=== PATIENT | female | born 1970 | race Caucasian/White ===

== ENCOUNTER 2019-01-19 19:09 | Outpatient (REF) | payer SELFPAY | END 2019-01-19 19:29 | LOC: LBN 19:09 | PROVIDERS: PCP Nurse Practitioner Family; Visit Provider Nurse Practitioner Family | DX: N89.8 Other specified noninflammatory disorders of vagina (principal) | CPT/HCPCS: 87480; 87510; 87660 ==

== ENCOUNTER 2020-10-22 07:49 | Emergency (ER) | payer BC, SELFPAY ==
[2020-10-22] VITALS (45 sets, daily range): BP systolic 127–157; BP diastolic 83–104; PULSE 66–91; RESP 10–21; TEMP 37; O2SAT 95–100
--- NOTE | 2020-10-22 07:45 | RT.EKG_ITS ---
APPROVED REPORT Exam: Resting ECG Patient Location: E HR:80 bpm ECG Measurements Heart Rate 80 AXIS TN 141 P 39 QRSd 92 QRS 13 QT 379 T 62 QTc 438 Conclusion Sinus rhythm...normal P axis, V-rate 60- 99 I have reviewed and interpreted ECG and agree with software generated interpretation.
--- NOTE | 2020-10-22 07:52 | ED.GENADUL_ITS ---
Discharge Plan Disposition Patient Disposition: HOME Condition: Stable Discharge Details Clinical Impression: Atypical chest pain, Hypertension Primary Care Provider: Kaylen Ennis ED Provider: Nell Sánchez Home Meds and New Rx's Prescriptions: No Action Xulane 150-35 mcg/24 hr patch weekly 1 patch Transdermal weekly Qty: 9 RF: 4 Discharge Instructions Instructions: Chest Pain (ED), Hypertension (ED) Additional Instructions: Your potassium and magnesium was slightly low today. You can supplement this in your diet. The remainder of your lab work and CAT scan of your chest was within normal limits. Your blood pressure was elevated today in the emergency department. Be sure to watch your sodium intake as high levels of sodium in your diet can contribute to high blood pressure. Follow-up with your primary care doctor for reevaluation of your blood pressure to determine if you need to start blood pressure medication. An order has been placed for an outpatient stress test. You will be notified by the radiology department regarding scheduling of the stress test. You should also follow-up with your primary care doctor for results of the stress test. Return immediately to the emergency department if you develop any worsening or new concerning symptoms. Discharge Data Discharge Date/Time-TO BE ENTERED AT DEPARTURE: 10/22/20 12:11 Discharge Physician: Nell Sánchez Medical Decision Making 50-year-old female on control presents for left-sided chest pain of several hours duration last night that started while walking on a treadmill. She admits to minimal left-sided chest discomfort 1/10 at this time. EKG notes a rate of 80, sinus, no STEMI, nondiagnostic. Patient appears comfortable and nontoxic. She has no left-sided chest tenderness. She admits to some tingling in her left arm with lifting her left arm above her head. As her pain started while walking on a treadmill, was worse with deep breath, could be musculoskeletal, but also consider PE considering her contraceptive use. Will check screening labs, CT chest, give a dose of Toradol and IV fluids and reassess. Labs and imaging reviewed. Potassium 3.4 and magnesium 1.7, will replete. CT chest negative. Patient reassessed and she admitted to some left arm tingling while lifting her arm above her head in radiology. She denies any pain at this time. Repeat troponin negative. Repeat EKG unchanged. Her blood pressure was as high as 155/104 and is low as 127/89. Several blood pressures before discharge 130s/80s. Patient reassessed and she denies any symptoms. Patient feels good to go home. An order for outpatient stress test was placed. Advised to follow up with the primary care doctor for re-evaluation and for recheck of her blood pressure. Usual and customary return precautions given prior to discharge. Medical Records Medical records reviewed: Yes I reviewed the patient's medical records. Imaging Data Radiologic Study: Radiologist's impression: CT CHEST PE CTA CLINICAL HISTORY: L anterior chest pain, r/o PE. TECHNIQUE: Imaging Protocol: Axial CT angiography was performed with multi- slice acquisition and multi-planar and/or 3D reconstructions. CONTRAST MATERIAL: Intravenous: Omnipaque 350 Contrast volume:structured data in ml COMPARISON: No exams were available for comparison FINDINGS: Pulmonary Arteries: No evidence of filling defect to suggest pulmonary emboli. Tracheobronchial tree: Patent where visualized. Mediastinum and Emily: No dominant adenopathy or fluid collection. Pulmonary parenchyma: No consolidation or dominant measurable mass. No architectural distortion. Pleura: No effusion or pneumothorax. Heart: The heart is not dilated. No coronary artery calcifications are seen. Aorta: Thoracic aorta non-dilated. Upper abdomen: Unremarkable. Bones: Mild degenerative disc changes mid thoracic spine. Sternum and ribs unremarkable. IMPRESSION: No evidence of pulmonary embolism or other acute abnormality.. Lab Data Lab results reviewed: Yes I reviewed the patient's lab results. Labs: Laboratory Tests Range/Units 10/22/20 10/22/20 10/22/20 08:03 08:03 08:03 WBC (4.4-10.8) 10^3/uL 4.98 RBC (3.93-5.22) 10^6/uL 4.46 Hgb (11.2-15.7) g/dL 13.2 Hct (36.0-46.0) % 39.5 MCV (80-95) fL 88.6 MCH (27.0-33.0) pg 29.6 MCHC (32.0-36.0) % 33.4 RDW (11.7-14.6) % 12.8 Plt Count (130-400) 10^3/uL 320 MPV (8.0-11.0) fL 9.4 Immature Gran % 0.2 Neutrophils % 52.0 Lymphocytes % 37.6 Monocytes % 8.4 Eosinophils % 1.4 Basophils % 0.4 Nucleated RBC % % 0 Absolute Neutrophils (1.2-6.7) 10^3/uL 2.59 Absolute Lymphocytes (1.2-3.4) 10^3/uL 1.87 Absolute Monocytes (0.1-0.8) 10^3/uL 0.42 Absolute Eosinophils (0.0-0.7) 10^3/uL 0.07 Absolute Basophils (0.0-0.2) 10^3/uL 0.02 PT (9.3-11.0) sec 10.0 INR (0.9-1.1) 1.0 APTT (21.0-27.5) sec 23.2 Sodium (136-145) mmol/L 141 Potassium (3.5-5.1) mmol/L 3.4 L Chloride (98-107) mmol/L 104 Carbon Dioxide (21.0-32.0) mmol/L 29.1 Anion Gap (3-11) mmol/L 7.9 BUN (7-18) mg/dL 28 H Creatinine (0.55-1.02) mg/dL 0.8 Estimated GFR/1.73 m2 (mL/min/1.73m2) >= 60.00 Glucose (74-106) mg/dL 101 Calcium (8.5-10.1) mg/dL 8.5 Magnesium (1.8-2.4) mg/dL 1.7 L Total Bilirubin (0.2-1.0) mg/dL 0.3 AST (15-37) U/L 19 ALT (14-59) U/L 29 Alkaline Phosphatase (46-116) U/L 54 Troponin I (<0.06) ng/mL < 0.05 Total Protein (6.4-8.2) g/dL 7.3 Albumin (3.4-5.0) g/dL 3.4 Range/Units 10/22/20 11:00 WBC (4.4-10.8) 10^3/uL RBC (3.93-5.22) 10^6/uL Hgb (11.2-15.7) g/dL Hct (36.0-46.0) % MCV (80-95) fL MCH (27.0-33.0) pg MCHC (32.0-36.0) % RDW (11.7-14.6) % Plt Count (130-400) 10^3/uL MPV (8.0-11.0) fL Immature Gran % Neutrophils % Lymphocytes % Monocytes % Eosinophils % Basophils % Nucleated RBC % % Absolute Neutrophils (1.2-6.7) 10^3/uL Absolute Lymphocytes (1.2-3.4) 10^3/uL Absolute Monocytes (0.1-0.8) 10^3/uL Absolute Eosinophils (0.0-0.7) 10^3/uL Absolute Basophils (0.0-0.2) 10^3/uL PT (9.3-11.0) sec INR (0.9-1.1) APTT (21.0-27.5) sec Sodium (136-145) mmol/L Potassium (3.5-5.1) mmol/L Chloride (98-107) mmol/L Carbon Dioxide (21.0-32.0) mmol/L Anion Gap (3-11) mmol/L BUN (7-18) mg/dL Creatinine (0.55-1.02) mg/dL Estimated GFR/1.73 m2 (mL/min/1.73m2) Glucose (74-106) mg/dL Calcium (8.5-10.1) mg/dL Magnesium (1.8-2.4) mg/dL Total Bilirubin (0.2-1.0) mg/dL AST (15-37) U/L ALT (14-59) U/L Alkaline Phosphatase (46-116) U/L Troponin I (<0.06) ng/mL < 0.05 Total Protein (6.4-8.2) g/dL Albumin (3.4-5.0) g/dL ECG Data Attestation: I personally reviewed and interpreted this ECG (s) as follows: Interpretation: #1 -- Rate of 80, sinus, no acute ST elevation or depression. WI 141. QRS 92. QTc 438. #2 -- Rate of 77, sinus, no acute ST elevation or depression. WI 140. QRS 90. QTc 462. HPI General Mode of arrival: ambulatory . Date/Time Provider Initiated Documentation: 10/22/20 07:52 . Limitations to Documentation: no limitations . Information obtained by: patient . HPI Narrative: Patient is a 50-year-old female with a history of contraceptive use presents to the ED with complaint of left-sided chest pain since last night. Patient states she was walking on a treadmill last evening when she developed left-sided chest pressure and discomfort. She denies any radiation of pain but did admit to some tingling in her left arm when she had the pain. Patient states she had the pain approximately until 3 AM while laying in bed and states she was unable to sleep. She states the pain resolved around 3 AM but she was no longer able to sleep the rest of the night. Patient states she awoke feeling tired but denies any pain this morning. She denies any known injury, fever, cough, shortness of breath, nausea, vomiting, dizziness, diaphoresis, recent injury, recent surgery, recent travel or leg pain or swelling. Related Data Home Medications Medication Instructions Recorded Confirmed norelgestromin 150 mcg-e.estradiol 1 patch TRANSDERMAL weekly #9 each 08/14/20 10/22/20 35 mcg/24 hr weekly transderm patch Previous Rx's Medication Instructions Recorded norelgestromin 150 mcg-e.estradiol 1 patch TRANSDERMAL weekly #9 each 08/14/20 35 mcg/24 hr weekly transderm patch Allergies Allergy/AdvReac Type Severity Reaction Status Date / Time No Known Allergies Allergy Unverified 10/22/20 07:59 Review of Systems All systems reviewed & are unremarkable except as noted in HPI and below Constitutional Constitutional: Reports as per HPI, Denies chills and Denies fever(s) Eyes Eyes: Denies blurry vision ENT Ears, Nose, Mouth, and Throat: Denies dizziness, Denies sore throat and Denies throat swelling Cardiovascular Cardiovascular: Reports chest pain and Denies dyspnea Respiratory Respiratory: Denies cough and Denies dyspnea Gastrointestinal Gastrointestinal: Denies abdominal pain, Denies diarrhea and Denies vomiting Genitourinary Genitourinary: Denies hematuria and Denies dysuria Musculoskeletal Musculoskeletal: Denies back pain and Denies numbness Integumentary/Breasts Skin/Breast: Denies lesions and Denies rash Neurologic Neurologic: Denies dizziness, Denies localized weakness and Denies numbness Allergic/Immunologic Allergic/Immunologic: Denies throat swelling [facility] Medical History (Updated 10/22/20 @ 09:51 by Nell Sánchez DO) Contraceptive surveillance Family History Mother Depression Skin cancer Father Essential hypertension Hyperlipidemia Skin cancer Heart disease Sister Alcohol abuse Sister Thyroid cancer Son No problems noted. Daughter No problems noted. Maternal Grandfather No problems noted. Maternal Grandmother Asthma Heart disease Paternal Grandfather Alcohol abuse Heart disease Paternal Grandmother No problems noted. Social History Smoking/Tobacco Use Status: Never Smoking risk assessment performed?: Yes Alcohol Intake: never Drug use: Never Do you feel safe at home: Yes Do you feel safe in your relationship?: Yes History History 2 Para 2 Hx # Term Pregnancies Multiple births Hx # Pregnancies Ectopic pregnancies AB induced Hx Number of Living Children 2 AB spontaneous Exam Const General: cooperative, healthy appearing and no acute distress HENMT Head: normal to inspection Face and sinus: normal facial exam Eyes General: appearance normal, both eyes and all related structures EOM: EOM intact bilaterally Neck Neck: normal visual inspection and No submandibular swelling Lymphatic: no lymphadenopathy noted Chest Chest: normal inspection of the chest and no tenderness Resp Effort & Inspection: normal respiratory effort and able to speak in complete sentences Auscultation: clear to auscultation bilaterally Cardio Rate: regular rate Rhythm: regular rhythm GI Inspection: normal to inspection Palpation: soft, not firm, not rigid and nontender Auscultation: normal bowel sounds Back/Spine/Pelvis Thoracic/Lumbar Spine: thoracic and lumbar spine normal to inspection Skin General skin exam: no rashes or lesions noted Neuro General: patient alert, patient awake and patient oriented x3 Cognition: normal cognition Speech: speech normal Motor: muscle tone normal throughout Sensory Exam: no sensory deficits noted Extrem General: normal to inspection, full ROM, capillary refill normal, no calf tenderness bilaterally and no edema Psych Appearance: grossly normal Mental Status: mental status grossly normal Speech and Movement: speech and movement normal Affect: normal affect
--- NOTE | 2020-10-22 08:15 | DI.CT_ITS ---
EXAM: CT CHEST PE CTA CLINICAL HISTORY: L anterior chest pain, r/o PE. TECHNIQUE: Imaging Protocol: Axial CT angiography was performed with multi-slice acquisition and mu lti-planar and/or 3D reconstructions. CONTRAST MATERIAL: Intravenous: Omnipaque 350 Contrast volume:structured data in ml COMPARISON: No exams were available for comparison FINDINGS: Pulmonary Arteries: No evidence of filling defect to suggest pulmonary emboli. Tracheobronchial tree: Patent where visualized. Mediastinum and Emily: No dominant adenopathy or fluid collection. Pulmonary parenchyma: No consolidation or dominant measurable mass. No architectural distortion. Pleura: No effusion or pneumothorax. Heart: The heart is not dilated. No coronary artery calcifications are seen. Aorta: Thoracic aorta non-dilated. Upper abdomen: Unremarkable. Bones: Mild degenerative disc changes mid thoracic spine. Sternum and ribs unremarkable. IMPRESSION: No evidence of pulmonary embolism or other acute abnormality.. RADIATION DOSE DELIVERED: 343.66mGy.cm Total DLP DATA REPOSITORY: All CT scans at this facility are submitted to the National Radiology Data Registry (NRDR) Dose Index Registry (DIR) with the [employer] ([employer]). RADIATION OPTIMIZATION: All CT scans at this facility use at least one of these dose optimization te chniques: automated exposure control; mA and/or kV adjustment per patient size (includes targeted exa ms where dose is matched to clinical indication); or iterative reconstruction.
[2020-10-22 08:19] LABS: Abs Immature Grans 0.01 10^3/uL (0.0-0.06); Absolute Basophil Count 0.02 10^3/uL (0.0-0.2); Absolute Eosinophil Count 0.07 10^3/uL (0.0-0.7); Absolute Lymphocyte Count 1.87 10^3/uL (1.2-3.4); Absolute Monocyte Count 0.42 10^3/uL (0.1-0.8); Absolute Neutrophil Count 2.59 10^3/uL (1.2-6.7); Basophils % 0.4; Eosinophils % 1.4; HCT 39.5 % (36.0-46.0); HGB 13.2 g/dL (11.2-15.7); Immature Grans % 0.2; Lymphocytes % 37.6; MCH 29.6 pg (27.0-33.0); MCHC 33.4 % (32.0-36.0); MCV 88.6 fL (80-95); MPV 9.4 fL (8.0-11.0); Monocytes % 8.4; Nucleated RBC 0 %; Platelet Count 320 10^3/uL (130-400); RBC 4.46 10^6/uL (3.93-5.22); RDW 12.8 % (11.7-14.6); RDW-SD 41.8 fL; WBC 4.98 10^3/uL (4.4-10.8)
[2020-10-22 08:32] LABS: PTT Activated 23.2 sec (21.0-27.5)
[2020-10-22 08:35] LABS: ALT 29 U/L (14-59); AST 19 U/L (15-37); Albumin 3.4 g/dL (3.4-5.0); Alkaline Phosphatase 54 U/L (46-116); Anion Gap 7.9 mmol/L (3-11); BUN 28 mg/dL (7-18); Bilirubin, Total 0.3 mg/dL (0.2-1.0); CO2 29.1 mmol/L (21.0-32.0); CREATININE 0.8 mg/dL (0.55-1.02); Calcium 8.5 mg/dL (8.5-10.1); Chloride 104 mmol/L (98-107); Glucose 101 mg/dL (74-106); Magnesium 1.7 mg/dL (1.8-2.4); Potassium 3.4 mmol/L (3.5-5.1); Sodium 141 mmol/L (136-145); Total Protein 7.3 g/dL (6.4-8.2)
[2020-10-22 08:36] LABS: Troponin I < 0.05 ng/mL (<0.06)
[2020-10-22] MEDS: Omnipaque 350 MG/ML 100 ML BTL IJ (09:03)
[2020-10-22] MEDS: Normal Saline - Diluent 50 ML VIAL IV (09:04)
[2020-10-22] MEDS: Potassium Chloride 20 MEQ TABCR 40 MEQ PO (09:08)
[2020-10-22] MEDS: Magnesium Oxide 400 MG TAB PO (09:08)
--- NOTE | 2020-10-22 09:15 | RT.EKG_ITS ---
APPROVED REPORT Exam: Resting ECG Patient Location: E HR:77 bpm ECG Measurements Heart Rate 77 AXIS MT 140 P 59 QRSd 90 QRS 13 QT 408 T 58 QTc 462 Conclusion Sinus rhythm...normal P axis, V-rate 60- 99 I have reviewed and interpreted ECG and agree with software generated interpretation.
[2020-10-22] MEDS: Normal Saline 1,000 ML 1000 ML IV (09:27)
[2020-10-22 11:22] LABS: Troponin I < 0.05 ng/mL (<0.06)
--- NOTE | 2020-10-22 11:59 | NUR.NOTE ---
Nursing Note: Exercise treadmill stress test referral faxed to [facility]. Instructions given to pt. Freida Cabrales
[2020-10-22 12:05] LABS: Source Nasal/Nares
[2020-10-22 16:17] LABS: COVID-19 PCR Negative (Negative)
--- NOTE | 2020-10-22 16:32 | NUR.NOTE ---
Covid results called to pt.
== END 2020-10-22 12:11 | disposition home or self-care (01) ==
PROVIDERS: Emergency Provider Physician Assistant; PCP Nurse Practitioner Family
DX: R07.89 Other chest pain (principal); E87.6 Hypokalemia; E83.42 Hypomagnesemia; R03.0 Elevated blood-pressure reading, without diagnosis of hypertension; R20.2 Paresthesia of skin; Z03.818 Encounter for observation for suspected exposure to other biological agents ruled out
CPT/HCPCS: 36415; 71275; 80053; 81025; 87635; 93005; 96361; 96374; 99285; 83735; 84484; 85025; 85610; 85730; 93010; J3490

== ENCOUNTER 2020-10-23 13:21 | Emergency (ER) | payer BC, SELFPAY ==
[2020-10-23] VITALS (45 sets, daily range): BP systolic 113–155; BP diastolic 80–102; PULSE 72–93; RESP 10–29; TEMP 36.5; O2SAT 95–99
--- NOTE | 2020-10-23 13:15 | RT.EKG_ITS ---
APPROVED REPORT Exam: Resting ECG Patient Location: E HR:75 bpm ECG Measurements Heart Rate 75 AXIS UT 147 P 68 QRSd 93 QRS -19 QT 400 T 59 QTc 447 Conclusion Sinus rhythm...normal P axis, V-rate 60- 99 I have reviewed and interpreted ECG and agree with software generated interpretation.
--- NOTE | 2020-10-23 13:30 | DI.RAD_ITS ---
EXAM: XR CHEST 2V PA LATERAL CLINICAL HISTORY: chest pain. TECHNIQUE: 2D digital imaging was performed. COMPARISON: No exams were available for comparison FINDINGS: Heart size is normal. The mediastinum is not widened. Lungs are clear. No infiltrates nor pleural effusions. IMPRESSION: No acute pulmonary findings. DATA REPOSITORY: RADIATION DOSE DELIVERED:
[2020-10-23 14:04] LABS: Abs Immature Grans 0.01 10^3/uL (0.0-0.06); Absolute Basophil Count 0.02 10^3/uL (0.0-0.2); Absolute Eosinophil Count 0.09 10^3/uL (0.0-0.7); Absolute Monocyte Count 0.29 10^3/uL (0.1-0.8); Absolute Neutrophil Count 3.13 10^3/uL (1.2-6.7); Basophils % 0.3; Eosinophils % 1.5; HCT 39.9 % (36.0-46.0); HGB 13.2 g/dL (11.2-15.7); Immature Grans % 0.2; Lymphocytes % 41.4; MCH 29.3 pg (27.0-33.0); MCHC 33.1 % (32.0-36.0); MCV 88.7 fL (80-95); MPV 9.5 fL (8.0-11.0); Monocytes % 4.8; Neutrophils % 51.8; Nucleated RBC 0 %; Platelet Count 321 10^3/uL (130-400); RDW 12.9 % (11.7-14.6); RDW-SD 42.2 fL; WBC 6.04 10^3/uL (4.4-10.8)
--- NOTE | 2020-10-23 14:14 | W.ED.GENAD ---
Discharge Plan Disposition Patient Disposition: HOME Condition: Stable Discharge Details Clinical Impression: Atypical chest pain, Hypomagnesemia, Hypokalemia Primary Care Provider: Kaylen Ennis ED Provider: Angie Simpson Home Meds and New Rx's Prescriptions: Continued Xulane 150-35 mcg/24 hr patch weekly 1 patch Transdermal weekly Qty: 9 RF: 4 Discharge Instructions Instructions: Chest Pain (ED), Hypokalemia (ED), Hypomagnesemia (ED) Additional Instructions: Your labs are reassuring here today. Please try to avoid strenuous activity. Please keep your upcoming appointment for stress testing. Please follow-up with primary care within the next week for reevaluation. If you develop any new or worsening symptoms please seek care urgently once again. Referrals: Kaylen Ennis NP [Primary Care Provider] - Discharge Data Discharge Date/Time-TO BE ENTERED AT DEPARTURE: 10/23/20 18:50 Medical Decision Making <RADHA Ewing - Last Filed: 10/23/20 15:04> 50-year-old female reports left-sided chest pressure and shortness of breath while carrying bags around 1245 this afternoon. Since that time she also had intermittent left hand paresthesias. Currently she denies any chest pain, pressure, shortness of breath, paresthesias. She had a thorough cardiac work-up yesterday including a CT of her chest. She is set up for stress test on 10-28-20. We discussed our options, she is agreeable to initiating another cardiac work-up now including a repeat EKG troponin at the 3-hour lashae. She does not want any aspirin. Clinically she appears well, nontoxic. Initial laboratory values are unremarkable for obvious emergent process. Magnesium of 1.7 and potassium of 3.2. Will give 1 g IV magnesium and 40 p.o. potassium. Initial troponin and EKG unremarkable. Upon reevaluation at 1450, patient is reading a book, asymptomatic, blood pressure trending down nicely. We discussed replenishing her magnesium and potassium. She is agreeable to awaiting a repeat troponin and EKG at the 3-hour lashae. Medical Records Medical records reviewed: Yes I reviewed the patient's medical records. Imaging Data Radiologic Study: Attestation: I personally reviewed and interpreted this imaging study as follows: Imaging: X-Ray Radiologist's impression: Chest x-ray read by radiology as no acute pulmonary findings Lab Data Lab results reviewed: Yes I reviewed the patient's lab results. Labs: Laboratory Tests Range/Units 10/23/20 10/23/20 13:50 13:50 WBC (4.4-10.8) 10^3/uL 6.04 RBC (3.93-5.22) 10^6/uL 4.50 Hgb (11.2-15.7) g/dL 13.2 Hct (36.0-46.0) % 39.9 MCV (80-95) fL 88.7 MCH (27.0-33.0) pg 29.3 MCHC (32.0-36.0) % 33.1 RDW (11.7-14.6) % 12.9 Plt Count (130-400) 10^3/uL 321 MPV (8.0-11.0) fL 9.5 Immature Gran % 0.2 Neutrophils % 51.8 Lymphocytes % 41.4 Monocytes % 4.8 Eosinophils % 1.5 Basophils % 0.3 Nucleated RBC % % 0 Absolute Neutrophils (1.2-6.7) 10^3/uL 3.13 Absolute Lymphocytes (1.2-3.4) 10^3/uL 2.50 Absolute Monocytes (0.1-0.8) 10^3/uL 0.29 Absolute Eosinophils (0.0-0.7) 10^3/uL 0.09 Absolute Basophils (0.0-0.2) 10^3/uL 0.02 Sodium (136-145) mmol/L 138 Potassium (3.5-5.1) mmol/L 3.2 L Chloride (98-107) mmol/L 103 Carbon Dioxide (21.0-32.0) mmol/L 25.8 Anion Gap (3-11) mmol/L 9.2 BUN (7-18) mg/dL 24 H Creatinine (0.55-1.02) mg/dL 0.7 Estimated GFR/1.73 m2 (mL/min/1.73m2) >= 60.00 Glucose (74-106) mg/dL 121 H Calcium (8.5-10.1) mg/dL 8.8 Magnesium (1.8-2.4) mg/dL 1.7 L Total Bilirubin (0.2-1.0) mg/dL 0.4 AST (15-37) U/L 21 ALT (14-59) U/L 25 Alkaline Phosphatase (46-116) U/L 54 Troponin I (<0.06) ng/mL < 0.05 Total Protein (6.4-8.2) g/dL 7.6 Albumin (3.4-5.0) g/dL 3.5 ECG Data Attestation: I personally reviewed and interpreted this ECG (s) as follows: Interpretation: Please see official report by Dr. Sánchez. Sinus rhythm, ventricular rate of 75. No STEMI. <RADHA Rodriguez - Last Filed: 10/24/20 07:45> Care transitioned to myself from Stevo Barbosa PA-C. Please see his initial note regarding history, presentation and exam. In brief, patient is a pleasant 50 year old female who presented today for a brief episode of recurrent CP that occurred while walking to her car. Patient was seen here yesterday for CP she experienced whlie walking on the treadmill. At that time she had extensive workup without abnormality noted. She is scheduled for outpatient stress testing on 10/28/20. Thus far, darcy had been diagnosed with hypomagnesemia, hypokalemia. These have been replenished by Mr. Barbosa. At the time i assumed care, awaiting repeat troponin. Repeat troponin remains <0.05. Discussed these findings with the patient. She has been asymptomatic since being here. She had initially refused ASA but agrees to daily ASA. She has familial cardiac history but this is slightly unclear. Her heart score is a 3. She and I discussed disposition, patient prefers discharge home. Return precautions discussed. She will keep her upcoming appointment. All of her questions and concerns were addressed, she is in agreement with this plan. HPI <RADHA Ewing - Last Filed: 10/23/20 15:04> General Mode of arrival: ambulatory. Date/Time Provider Initiated Documentation: 10/23/20 13:23. Limitations to Documentation: no limitations. Information obtained by: patient. HPI Narrative: This is a 50-year-old female, past medical history of hypertension, currently treated with estradiol transdermal patch, presents to the ER for what she describes as chest pressure. Patient was actually evaluated in our ER yesterday, please refer to that note as well. Patient had a thorough cardiac work-up including 2 troponins and a negative chest CT. Set up for a cardiac stress test on 10-28-20. Patient reports today approximately 1245 this afternoon, she was carrying her bags and felt a small amount of what she describes as left-sided chest pressure 1 out of 10, mild shortness of breath, and since that time has had intermittent tingling in her left hand, none right now. Patient denies any chest pain or shortness of breath effectively. She denies recent illness or trauma. She denies pain or swelling in her legs. She states that the instructions clearly stated that if she experience additional symptoms to return to the ER so that is what she is doing. Patient denies being a smoker. She denies any cardiac history. Related Data Home Medications Medication Instructions Recorded Confirmed norelgestromin 150 mcg-e.estradiol 1 patch TRANSDERMAL weekly #9 each 08/14/20 10/23/20 35 mcg/24 hr weekly transderm patch Previous Rx's Medication Instructions Recorded norelgestromin 150 mcg-e.estradiol 1 patch TRANSDERMAL weekly #9 each 08/14/20 35 mcg/24 hr weekly transderm patch Allergies Allergy/AdvReac Type Severity Reaction Status Date / Time No Known Allergies Allergy Unverified 10/23/20 13:31 General Stated Complaint: Chest Pain BRANDEN: 2 Review of Systems <RADHA Ewing - Last Filed: 10/23/20 15:04> Constitutional Constitutional: Denies fever(s), Denies headache(s) and Denies weakness ENT Ears, Nose, Mouth, and Throat: Denies headache(s) and Denies neck pain Cardiovascular Cardiovascular: Reports chest pain and Reports dyspnea Respiratory Respiratory: Denies cough and Reports dyspnea Gastrointestinal Gastrointestinal: Denies abdominal pain, Denies nausea and Denies vomiting Musculoskeletal Musculoskeletal: Denies back pain, Denies neck pain and Reports tingling Integumentary/Breasts Skin/Breast: Denies rash Neurologic Neurologic: Denies headache(s), Reports tingling and Denies weakness Endocrine Endocrine: Reports other (Feeling tired, did not sleep well last night) [facility] <RADAH Ewing - Last Filed: 10/23/20 15:04> Medical History (Updated 10/23/20 @ 18:21 by RADHA Rodriguez) Contraceptive surveillance Family History Mother Depression Skin cancer Father Essential hypertension Hyperlipidemia Skin cancer Heart disease Sister Alcohol abuse Sister Thyroid cancer Son No problems noted. Daughter No problems noted. Maternal Grandfather No problems noted. Maternal Grandmother Asthma Heart disease Paternal Grandfather Alcohol abuse Heart disease Paternal Grandmother No problems noted. Social History Smoking/Tobacco Use Status: Never Smoking risk assessment performed?: Yes Alcohol Intake: never Drug use: Never Do you feel safe at home: Yes Do you feel safe in your relationship?: Yes History History 2 Para 2 Hx # Term Pregnancies Multiple births Hx # Pregnancies Ectopic pregnancies AB induced Hx Number of Living Children 2 AB spontaneous Exam <RADHA Ewing - Last Filed: 10/23/20 15:04> Const General: cooperative, healthy appearing, comfortable and no acute distress Orientation: alert, awake and oriented x3 HENMT Head: normal to inspection, normocephalic and atraumatic Mouth: moist mucous membranes Eyes General: appearance normal, both eyes and all related structures Conjunctivae: conjunctivae normal Sclera: sclerae normal Neck Neck: normal visual inspection, full ROM, trachea midline and supple Resp Effort & Inspection: normal respiratory effort and able to speak in complete sentences Auscultation: clear to auscultation bilaterally Cardio Rate: regular rate Rhythm: regular rhythm GI Palpation: soft and nontender Back/Spine/Pelvis Back: No back tenderness Skin General skin exam: no rashes or lesions noted Neuro General: patient alert, patient awake, moves all extremities and no focal motor deficits Cognition: normal cognition Speech: speech normal Gait: normal gait Motor: muscle tone normal throughout Sensory Exam: no sensory deficits noted Extrem General: normal to inspection, full ROM, capillary refill normal, no pedal edema and no calf tenderness Psych Appearance: grossly normal Mental Status: mental status grossly normal Course <RADHA Ewing - Last Filed: 10/23/20 15:04> Vital Signs Vital signs: Vital Signs Temperature 36.5 C 10/23/20 13:29 Pulse 78 10/23/20 13:29 Respiratory Rate 15 10/23/20 13:29 Blood Pressure 155/93 H 10/23/20 13:29 Pulse Oximetry 98 10/23/20 13:29 Temperature 36.5 C 10/23/20 13:29 Temperature Source Skin 10/23/20 13:29 Pulse 80 10/23/20 13:47 Pulse 77 10/23/20 14:00 Respiratory Rate 13 10/23/20 14:05 Respiratory Effort 10/23/20 14:05 Respiratory Depth Normal 10/23/20 14:05 Respiratory Pattern Normal 10/23/20 14:05 Blood Pressure 134/89 10/23/20 13:47 Blood Pressure Mean 100 10/23/20 13:47 Blood Pressure Position Sitting 10/23/20 13:29 Pulse Oximetry 97 10/23/20 14:00 Oxygen Delivery Method Room Air 10/23/20 13:29 Oxygen Flow Rate 0 10/23/20 13:29 Pain Level 1 10/23/20 13:29 Lab/Test Results Lab/Test Results: Laboratory Tests Range/Units 10/23/20 13:50 WBC (4.4-10.8) 10^3/uL 6.04 RBC (3.93-5.22) 10^6/uL 4.50 Hgb (11.2-15.7) g/dL 13.2 Hct (36.0-46.0) % 39.9 MCV (80-95) fL 88.7 MCH (27.0-33.0) pg 29.3 MCHC (32.0-36.0) % 33.1 RDW (11.7-14.6) % 12.9 Plt Count (130-400) 10^3/uL 321 MPV (8.0-11.0) fL 9.5 Immature Gran % 0.2 Neutrophils % 51.8 Lymphocytes % 41.4 Monocytes % 4.8 Eosinophils % 1.5 Basophils % 0.3 Nucleated RBC % % 0 Absolute Neutrophils (1.2-6.7) 10^3/uL 3.13 Absolute Lymphocytes (1.2-3.4) 10^3/uL 2.50 Absolute Monocytes (0.1-0.8) 10^3/uL 0.29 Absolute Eosinophils (0.0-0.7) 10^3/uL 0.09 Absolute Basophils (0.0-0.2) 10^3/uL 0.02 Sign Out <RADHA Ewing - Last Filed: 10/23/20 15:04> Sign Out Data: Sign Out Comment: Diagnosed with atypical chest pain yesterday, rapid cardiac rule out and CT of chest yesterday. Set up for stress test on 10-28-20. She developed mild which she describes as chest pressure, shortness of breath, left hand paresthesias. Pressure and shortness of breath resolved by the time she came to the ER. Patient is currently asymptomatic. Initial troponin and EKG unremarkable. Patient declined aspirin. Awaiting repeat troponin and EKG. Last updated by Stevo Barbosa PA at 10/23/20 15:04
[2020-10-23 14:20] LABS: ALT 25 U/L (14-59); AST 21 U/L (15-37); Albumin 3.5 g/dL (3.4-5.0); Alkaline Phosphatase 54 U/L (46-116); Anion Gap 9.2 mmol/L (3-11); BUN 24 mg/dL (7-18); Bilirubin, Total 0.4 mg/dL (0.2-1.0); CO2 25.8 mmol/L (21.0-32.0); CREATININE 0.7 mg/dL (0.55-1.02); Calcium 8.8 mg/dL (8.5-10.1); Chloride 103 mmol/L (98-107); Glucose 121 mg/dL (74-106); Magnesium 1.7 mg/dL (1.8-2.4); Potassium 3.2 mmol/L (3.5-5.1); Sodium 138 mmol/L (136-145); Total Protein 7.6 g/dL (6.4-8.2)
[2020-10-23 14:21] LABS: Troponin I < 0.05 ng/mL (<0.06)
[2020-10-23] MEDS: Potassium Chloride 20 MEQ TABCR 40 MEQ PO (15:14)
[2020-10-23] MEDS: MAGNESIUM SULFATE 1 GM/100 ML BAG IVPB (15:14)
[2020-10-23 18:08] LABS: Troponin I < 0.05 ng/mL (<0.06)
== END 2020-10-23 18:50 | disposition home or self-care (01) ==
PROVIDERS: Physician Assistant; Emergency Provider Physician Assistant; PCP Nurse Practitioner Family
DX: R06.89 Other abnormalities of breathing (principal); E87.6 Hypokalemia; E83.42 Hypomagnesemia; R20.2 Paresthesia of skin
CPT/HCPCS: 36415; 80053; 93005; 96365; 99285; 71046; 83735; 84484; 85025; 93010; 99284; J3475

== ENCOUNTER 2020-10-28 01:34 | Outpatient (CLI) | payer BC, SELFPAY ==
--- NOTE | 2020-10-28 08:00 | ETT_ITS ---
APPROVED REPORT Exam: Exercise Treadmill Patient Location: Out-Patient Room/Bed: Stress Nurse: Soha Small RN Ordering Provider:JOSÉ MIGUEL READ, Contact Number: BMI: 24.79 Baseline Rhythm: Sinus Rhythm Indications: Chest pain while exercising. Medical History Medical History: No history of CAD Cardiac Medications: None. Allergies: No known drug allergies Cardiac Risk Factors: FHX of CAD Previous Cardiac Procedures: None. Pretest Chest Pain Characteristics: No chest pain Exercise History: Physically active Physical Disabilities: None. Lung Sounds: Clear to auscultation Heart Sounds: Regular Stress Test Details Test: Exercise stress testing was performed using a Michael protocol. Rest Stress HR Resting HR Supine: 77 bpm Max Heart Rate (APMHR): 172 bpm Resting HR Standin bpm Target HR (85% APMHR): 146 bpm Max HR Achieved: 174 bpm % of APMHR: 101 Recovery HR: 99 bpm HR response to stress: Normal HR response to stress BP Resting BP Supine: 128/84 mmHg Resting BP Standin/86 mmHg Max BP: 160/80 mmHg Recovery BP: 130/82 mmHg BP response to stress: Normal blood pressure response to stress. ECG Resting ECG: Sinus Rhythm Ectopy: None. Stress ECG: Sinus Tachycardia ST Change: No significant ST segment changes noted Arrhythmia: None Recovery ECG: Sinus Rhythm Recovery ST Change: No significant ST segment changes noted Recovery Arrhythmia: None Clinical Reason for Termination: Fatigue Stress Symptoms: General Fatigue Exercise duration: 13 min09 sec Highest Stage Reached: Stage 5: 5.0 mph at 18% grade. Exercise capacity: 14.26 METs Warner Treadmill Score: 12 Rate Pressure Product: 60320 Stress ECG Conclusion 1. The patient exercised for 13 minutes (14 METS). Exercise was stopped due to fatigue. 2. Patient's blood pressure and heart rate augmented appropriately with exercise. 3. There was no evidence of ischemia on the ECG portion of the exam. Warner Treadmill Score is 12 which is Low risk. Stress Test Summary STAGE Time (mins) Speed (mph) Grade (%) HR BP SYMPTOMS METS Supine 77 128/84 Standing 82 122/86 1 3 1.7 10 115 132/84 4.6 2 6 2.5 12 130 144/86 7 3 9 3.4 14 152 150/84 10.2 4 12 4.2 16 167 12.9 1 min recovery 148 160/80 3 min recovery 107 148/78 6 min recovery 99 130/82
== END 2020-10-28 01:54 ==
LOC: DI 01:35
PROVIDERS: PCP Nurse Practitioner Family; Visit Provider Physician Assistant
DX: R07.9 Chest pain, unspecified (principal); Z82.49 Family history of ischemic heart disease and other diseases of the circulatory system
CPT/HCPCS: 93017

== ENCOUNTER 2020-11-05 03:56 | Outpatient (CLI) | payer BC, SELFPAY ==
[2020-11-05 16:03] LABS: Hemoglobin A1C 5.5 % (<5.7)
[2020-11-05 17:34] LABS: Anion Gap 7.8 mmol/L (3-11); BUN 26 mg/dL (7-18); CO2 27.2 mmol/L (21.0-32.0); CREATININE 0.7 mg/dL (0.55-1.02); Calcium 8.5 mg/dL (8.5-10.1); Chloride 104 mmol/L (98-107); Glucose 102 mg/dL (74-106); Magnesium 1.8 mg/dL (1.8-2.4); Potassium 3.6 mmol/L (3.5-5.1); Sodium 139 mmol/L (136-145); TSH 3.68 uIU/mL (0.36-3.74)
[2020-11-05 17:52] LABS: FREE T4 0.77 ng/dL (0.76-1.46)
== END 2020-11-05 03:57 | disposition home or self-care (01) ==
LOC: LBO 03:56
PROVIDERS: PCP Nurse Practitioner Family; Visit Provider Nurse Practitioner Family
DX: R53.83 Other fatigue (principal); E83.42 Hypomagnesemia
CPT/HCPCS: 36415; 80048; 83036; 83735; 84439; 84443

== ENCOUNTER 2020-12-10 13:18 | Outpatient (REF) | payer BC, SELFPAY ==
[2020-12-11 15:54] LABS: COVID-19 RT-PCR UVMMC Result Negative (Negative)
== END 2020-12-10 13:19 | disposition home or self-care (01) ==
LOC: LBN 13:18
PROVIDERS: PCP Nurse Practitioner Family; Visit Provider Physician Assistant
DX: Z20.822 Contact with and (suspected) exposure to COVID-19 (principal); J02.9 Acute pharyngitis, unspecified
CPT/HCPCS: U0003

== ENCOUNTER 2023-09-15 12:04 | Outpatient (REF) | payer BC, SELFPAY ==
--- NOTE | 2023-09-15 11:15 | PAPFT_PTH ---
PATIENT: Gretta Langston LOC: [facility] U#:[id number] AGE/SX: 52/F ROOM: RE09/15/[address]: [address] : 1970 BED: DIS: 09/15/2023 SPEC #: [id number] RECD: 09/15/23 13:07 STATUS: EMMANUELLE REEliana #: [id number] JOY: 09/15/23 11:[address]: Kaylen Ennis DEPT: [facility] Cytology RECD BY: Raven Reina Tissues: 1 - CX/ENDOCX FOR PAP SMEARS Procedures: PAP THIN PREP/UVM Screening HPV DNA PROBE Comments: [id number]
== END 2023-09-15 12:05 | disposition home or self-care (01) ==
LOC: LBN 12:04
PROVIDERS: PCP Nurse Practitioner Family; Visit Provider Nurse Practitioner Family
DX: N76.0 Acute vaginitis (principal); Z12.4 Encounter for screening for malignant neoplasm of cervix; Z11.51 Encounter for screening for human papillomavirus (HPV)
CPT/HCPCS: 88142; 87480; 87510; 87624; 87660